=== PATIENT | female | born 1935 | race Caucasian/White ===

== ENCOUNTER 2017-04-15 14:08 | Inpatient (IN) | payer MEDICARE, BC ==
[2017-04-15 15:52] LABS: #Basophils 0.1 thou/uL (0.0-0.2); #Eosinphils 0.2 thou/uL (0.0-0.7); #Lymphocytes 2.8 thou/uL (1.20-3.40); #Monocytes 0.8 thou/uL (0.11-0.59); #Neutrophils 5.4 thou/uL (1.40-6.50); %Basophils 0.8 % (0.0-1.0); %Lymphocytes 30.2 % (21.0-51.0); %Monocytes 8.8 % (0.0-10.0); %Neutrophils 58.2 % (42.0-75.0); Hemoglobin 12.4 g/dL (12.0-16.0); Mean Corpuscular Hemoglobin 30.9 pg (27.0-31.0); Mean Corpuscular Volume 96.8 fl (81.0-99.0); Mean Platelet Volume 7.8 fL (7.4-10.4); Platelet Count 390 thou/uL (130-400); RBC Distribution Width 11.9 % (11.5-14.5); Red Blood Cell (RBC) Count 4.02 mill/uL (4.20-5.40); White Blood Cell (WBC) Count 9.2 thou/uL (4.8-10.8)
[2017-04-15] MEDS ORDERED: Clindamycin/D5W 600 mg/50 ml Premix Bag ONE (15:57)
[2017-04-15 16:11] LABS: Anion Gap 15 mmol/L (10-20); BUN (Urea Nitrogen) 14 mg/dL (9.8-20.1); Calc. Creatinine Clearance 0 mL/min (70-130); Calcium 9.4 mg/dL (7.8-10.44); Carbon Dioxide 22 mmol/L (23-31); Chloride 103 mmol/L (98-107); Estimated GFR-MDRD 84; Glucose 108 mg/dL (83-110); Potassium 4.6 mmol/L (3.5-5.1); Sodium 135 mmol/L (136-145)
--- NOTE | 2017-04-15 16:45 | RAD ---
RIGHT ANKLE 3 VIEWS: Date: 04/15/17 HISTORY: Blistering and infection. COMPARISON: None. FINDINGS: There is soft tissue ulceration. There is diffuse bone demineralization. No fracture. There appears t o be abnormality involving the mid foot/hindfoot. Dedicated right foot radiograph series is recommend ed. IMPRESSION: 1. Diffuse bone demineralization. 2. Possible soft tissue ulceration. 3. Abnormality of the right mid foot and hindfoot. Dedicated right foot radiograph series is recomme nded. POS: [facility]
[2017-04-15] MEDS ORDERED: Ondansetron HCl/PF 4 MG/2 ML Vial ONE (18:09)
[2017-04-15] MEDS ORDERED: Prevnar 13-Val Conj/PF 0.5 ML SYRINGE IM ONE (21:00)
[2017-04-15] MEDS ORDERED: FLU VACC TS2017-18 (>65YR) 0.5 ML SYRINGE IM ONE (21:00)
[2017-04-15] MEDS ORDERED: Ondansetron HCl/PF 4 MG/2 ML Vial IVP PRN (22:36)
[2017-04-16] MEDS ORDERED: Acetaminophen/Codeine 30-300mg Tablet PO PRN (01:45)
[2017-04-16] MEDS ORDERED: Ondansetron ODT 4 MG TAB SL PRN (01:45)
[2017-04-16] MEDS ORDERED: Baclofen 10 MG TAB PO PRN (01:45)
[2017-04-16] MEDS ORDERED: Miconazole 2% Vaginal Cream 45 GM TUBE TOP PRN (01:45)
[2017-04-16] MEDS ORDERED: Clotrimazole 2% 3 Day Vag Cr 22.2 GM TUBE VAG PRN (02:22)
[2017-04-16] MEDS: Sodium Chloride 0.9% 1,000 ML IV SCH ×3 (02:22→17:46)
[2017-04-16 05:00] LABS: #Basophils 0.1 thou/uL (0.0-0.2); #Eosinphils 0.3 thou/uL (0.0-0.7); #Lymphocytes 2.6 thou/uL (1.20-3.40); #Monocytes 0.8 thou/uL (0.11-0.59); #Neutrophils 3.4 thou/uL (1.40-6.50); %Basophils 1.2 % (0.0-1.0); %Eosinophils 4.4 % (0.0-10.0); %Lymphocytes 35.7 % (21.0-51.0); %Monocytes 11.1 % (0.0-10.0); %Neutrophils 47.5 % (42.0-75.0); Hemoglobin 11.4 g/dL (12.0-16.0); Mean Corpuscular HGB CONC 31.5 g/dL (32.0-36.0); Mean Corpuscular Hemoglobin 30.5 pg (27.0-31.0); Platelet Count 384 thou/uL (130-400); Red Blood Cell (RBC) Count 3.72 mill/uL (4.20-5.40); White Blood Cell (WBC) Count 7.2 thou/uL (4.8-10.8)
[2017-04-16] MEDS: Levothyroxine Sodium 88 MCG TAB PO SCH (05:08)
[2017-04-16 05:24] LABS: Anion Gap 10 mmol/L (10-20); BUN (Urea Nitrogen) 13 mg/dL (9.8-20.1); Calc. Creatinine Clearance 55 mL/min (70-130); Calcium 8.9 mg/dL (7.8-10.44); Carbon Dioxide 26 mmol/L (23-31); Chloride 102 mmol/L (98-107); Estimated GFR-MDRD 86; Glucose 86 mg/dL (83-110); Potassium 4.4 mmol/L (3.5-5.1); Sodium 134 mmol/L (136-145)
[2017-04-16] MEDS: HYDROcodone/Acetaminophen 5/325 mg Tablet PO PRN ×2 (05:52→11:31)
[2017-04-16] MEDS ORDERED: Clindamycin/D5W 600 MG in Premix Bag 1 BAG IVPB SCH (06:00)
--- NOTE | 2017-04-16 06:19 | PDOC.FM ---
- Subjective Subjective: Pt reports doing fine. Says she didn't sleep at all overnight. Denies any fever or chills. says pain is being well controlled. Says she is very weak. Says she has poor mobility in one shoulder and has a hard time getting up and is hard for her to get up and walk around on her foot. Denies any acute events overnight. No other concerns at this time. - Objective MAR Reviewed: Yes Vital Signs & Weight: Vital Signs (12 hours) Temp Pulse Resp BP Pulse Ox 04/16/17 00:00 98 F 64 20 151/75 H 95 04/15/17 20:05 99 04/15/17 20:00 98.5 F 91 20 04/15/17 19:02 98.5 F 91 20 190/84 H 99 I&O: 04/14/17 04/15/17 04/16/17 06:59 06:59 06:59 Intake Total 50 Balance 50 Result Diagrams: 04/16/17 04:09 04/16/17 04:09 Radiology Reviewed by me: Yes Radiology: Foot X-ray- Pes planus deformity noted Ankle X-ray- No sign of osteomyelitis. Bone mineralization changes noted <Wilner Schulz - Last Filed: 04/16/17 08:38> - Objective Result Diagrams: 04/16/17 04:09 04/16/17 04:09 <Adrian Fernández - Last Filed: 04/16/17 11:47> Phys Exam - Physical Examination HEENT: PERRLA, moist MMs, oral pharynx no lesions Neck: no nodes, supple, full ROM Respiratory: no wheezing, no rales, no rhonchi, clear to auscultation bilateral Cardiovascular: RRR, no significant murmur, no rub Gastrointestinal: soft, non-tender, no distention, positive bowel sounds Musculoskeletal: no edema, pulses present Wound is dressed at this time. No redness noted Foot is pointed outward, seems to be chronically malpositioned Neurological: non-focal, normal sensation, moves all 4 limbs Lymphatic: no nodes Psychiatric: normal affect, A&O x 3 Skin: no rash, normal turgor, cap refill <2 seconds <Wilner Schulz - Last Filed: 04/16/17 08:38> Dx/Plan (1) chronic venostasis Status: Acute (2) HTN (hypertension) Code(s): I10 - ESSENTIAL (PRIMARY) HYPERTENSION Status: Acute (3) Rheumatoid arthritis Code(s): M06.9 - RHEUMATOID ARTHRITIS, UNSPECIFIED Status: Acute (4) Hypothyroid Code(s): E03.9 - HYPOTHYROIDISM, UNSPECIFIED Status: Acute (5) Cellulitis Code(s): L03.90 - CELLULITIS, UNSPECIFIED Status: Acute (6) Depression Code(s): F32.9 - MAJOR DEPRESSIVE DISORDER, SINGLE EPISODE, UNSPECIFIED Status : Acute - Plan Plan: RLE cellulitis 2/2 chronic venous ulcer Infection -Clindamycin IV. No fevers overnight -Tylenol #4 prn as needed. -X-ray of ankle and foot does not show any acute concern for osteomyelitis at this time. -Wound Care consulted- has been to wound care clinic in the past -consulted PT/OT for mobility assessment HTN -continue home meds. will continue to monitor BP RA -Continue to monitor for flares. Depression -continue home meds Hypothyroidism -continue home meds <Wilner Schulz - Last Filed: 04/16/17 08:38> Attending Addendum - Attending Addendum I personally evaluated the patient and discussed the management with Dr. Schulz. I agree with the History, Examination, Assessment and Plan documented above with any addition or exceptions noted below. Patient doing well. Seems to have mild cellulitis from venous stasis ulcer. No current evidence to suggest osteomyelitis. Continue clindamycin and consult wound care. Patient also has deconditioning and would likely benefit from Rehab versus SNF. Will consult therapy services and CM. <Adrian Fernández - Last Filed: 04/16/17 11:47>
[2017-04-16] MEDS ORDERED: Polyethylene Glycol 3350 17 GM Packet PO ONE (06:22)
--- NOTE | 2017-04-16 06:44 | PDOC.EVN ---
Event Note - Event Note Event Note: Attending H&P. Late entry. I personally evaluated the patient and discussed the management with Dr. Palma on the evening of 04/15. The Written H&P has been reviewed and is repeated by me. I agree with the History, Examination, Assessment and Plan documented above with any addition or exceptions noted below.
--- NOTE | 2017-04-16 07:59 | RAD ---
THREE VIEWS RIGHT FOOT: HISTORY: Right foot deformity on prior exam. FINDINGS: AP, lateral, and oblique views right foot are obtained. Images demonstrate no evidence of acute fractures. There is pes planus deformity of the right foot. No evidence of acute fractures seen. IMPRESSION: Pes planus deformity right foot. POS: [facility]
--- NOTE | 2017-04-16 08:47 | HP-2 ---
CODE STATUS: FULL. PRIMARY CARE PHYSICIAN: Latha monge. ATTENDING: Dr. Pee Abraham RESIDENT: Dr. Dominique Palma CHIEF COMPLAINT: Right foot infection. HISTORY OF PRESENT ILLNESS: This is an 81-year-old female with past medical history of hypertension and chronic wound on right ankle for the past year. The patient complained of a right foot infection . She reports blistering and sores of right foot for approximately 2 weeks. [facility] and was told last week her foot was infected, but was not given treatment. T he patient states that it has since gotten worse. She denies any fever or chills during this time. The reported that she has had chronic right foot problems for approximately 10 years now. Th e foot has now become red and painful. She normally walks well with a walker, but has had difficulty ambulating since she is unable to bear weight on that right foot. The patient has not received any antibiotics in the last few weeks for treatment of this infection. She was given Zofran 8 mg IVP, mo rphine 4 mg IVP and clindamycin 600 mg IVP in the ER. PAST MEDICAL HISTORY: 1. Hypertension. 2. Rheumatoid arthritis. 3. Chronic venous hypertension with ulcers and inflammation. 4. Hyperlipidemia. 5. Hypothyroidism. 6. Possible osteoporosis. PAST SURGICAL HISTORY: 1. History of venous ablation on left by Dr. Salazar. 2. Bilateral knee replacements. 3. Bilateral wrist surgery. ALLERGIES: No known drug allergies. MEDICATIONS: 1. Tylenol No. 4 one tablet p.o. q.4h. p.r.n. 2. Amlodipine 5 mg p.o. daily. 3. Baclofen 10 mg p.o. b.i.d. p.r.n. 4. Calcium carbonate/vitamin D3 1500 mg/400 unit capsule 1 tablet p.o. b.i.d. 5. Citalopram 40 mg p.o. daily. 6. Ferrous sulfate 325 mg p.o. b.i.d. 7. Folic acid 1 mg p.o. daily. 8. Furosemide 20 mg p.o. daily. 9. Lactobacillus acidophilus 1 tab p.o. daily. 10. Synthroid 88 mcg p.o. daily. 11. Lidoderm 5% patch 1 patch topical daily. 12. Losartan 50 mg p.o. daily. 13. Magnesium 200 mg p.o. b.i.d. 14. Miconazole 2% vaginal cream 1 application topical daily p.r.n. 15. Tennyson 3 acid ethyl esters 2 mg p.o. b.i.d. 16. Zofran 4 mg sublingual t.i.d. p.r.n. 17. Protonix 40 mg p.o. b.i.d. 18. MiraLax 17 grams p.o. b.i.d. 19. Potassium chloride 20 mEq p.o. daily. 20. Pravastatin 20 mg p.o. daily. 21. Raloxifene 60 mg p.o. daily. 22. Senna 8.6 mg p.o. daily. FAMILY HISTORY: Noncontributory. SOCIAL HISTORY: The patient denies tobacco, alcohol, or drug use. REVIEW OF SYSTEMS: A 12 point review of systems was performed, all were negative except as listed in HPI and as indicated below. The patient does endorse a reducible ventral hernia which has been pres ent for several years. She denies any complications secondary to this hernia. She has been constipa natalia for the last 2 days, but normally has bowel movement every day. She endorses a rash of the right lower extremity, particularly on the ankle and foot. Additionally, she has rheumatoid arthritis whi ch causes musculoskeletal pain and stiffness. She has been weak since onset of this right lower extr emity infection. She has had difficulty ambulating. PHYSICAL EXAMINATION: VITAL SIGNS: Blood pressure 166/89, pulse 71, respiratory rate 19, T-max 98.3, pulse ox 99% on room air, current weight 53 kilograms. GENERAL: The patient is alert and oriented x3, no acute distress, well-developed, well-nourished, th in and appropriately interactive and she is a poor historian. EYES: Extraocular muscles intact. Conjunctivae within normal limits. ENT: Nasal mucosa within normal limits. NECK: Supple. CARDIOVASCULAR: Irregular rhythm. No murmurs, no gallops. Radial and pedal pulses 1+. RESPIRATORY: Normal effort, no retractions, clear to auscultation bilaterally. SKIN: Warm and dry. No cyanosis. Lower extremities do feel cool to touch and did have a shiny appe arance. Right lower extremity wounds are present on the medial and lateral aspect of distal tibia an d fibula. They are currently dressed by Wound Care. ABDOMEN: Soft, nontender to palpation. Bowel sounds positive in all 4 quadrants. There is a large ventral hernia that is reducible. EXTREMITIES: No clubbing, cyanosis or edema. MUSCULOSKELETAL: Structure within normal limits. NEUROLOGIC: No focal deficits. The patient is able to ambulate with walker. PSYCHIATRIC: Appropriate. LABORATORY DATA: 1. CBC reveals a white blood cell count 9.2, hemoglobin 12.4, hematocrit 38.9, platelets 390. 2. BMP reveals sodium 135, potassium 4.6, chloride 103, bicarbonate 22, BUN 14, creatinine 0.67, glu cose 108, calcium 9.4. 3. Right ankle x-ray. She has diffuse bone demineralization with possible soft tissue ulceration an d abnormality of right midfoot and hindfoot. A dedicated right foot radiograph series was recommende d. ASSESSMENT AND PLAN: This is an 81-year-old female with past medical history of chronic venous hyper tension who presents with pain and redness of the right foot. 1. Cellulitis of the right lower extremity secondary to chronic venous ulcer infection. The patient was admitted to the medical floor for observation. X-ray of the right ankle did not show any indica tion of osteomyelitis. Per recommendations a dedicated right foot radiograph was performed and is pe nding at this time. An ESR is also pending to further evaluate for osteomyelitis. An MRI of the rig ht lower extremity may be warranted if clinical suspicion for osteomyelitis arises. We will order ar terial Dopplers of the lower extremities to evaluate arterial flow and assess potential for healing. PT and OT were ordered to help evaluate the patient. Additionally, rehab screen was put in as the p atient has been deconditioned secondary to not being able to ambulate. We will continue clindamycin 600 mg q.6h. for treatment of presumed cellulitis. 2. Hypertension. Resume home meds. 3. Rheumatoid arthritis. The patient has obvious deformities indicative of rheumatoid arthritis; ho wever, she does not appear to be on any medications to include immunosuppressive therapy at this time . We will assist with pain control via Tylenol for now. 4. Irregular heart rhythm. We will obtain an EKG to further evaluate with an intent of ruling out a trial fibrillation, premature atrial contractions and premature ventricular contractions. If EKG cantor s show atrial fibrillation this would be new onset for the patient and it does appear to be rate cont rolled. 5. Deep venous thrombosis prophylaxis. Lovenox. DISPOSITION/LENGTH OF HOSPITAL STAY: 2 days. Symptomatic medications will be provided. History and physical exam as well as management discussed with Dr. Pee Abraham.
[2017-04-16] MEDS ORDERED: Fish Oil 1,000 MG CAP PO SCH (09:00)
[2017-04-16] MEDS: Calcium Carbonate + Vit D 1 TAB PO SCH ×2 (09:45→21:32)
[2017-04-16] MEDS: Losartan 25 MG TAB PO SCH (09:45)
[2017-04-16] MEDS: Ferrous Sulfate 325 MG TAB PO SCH ×2 (09:46→17:45)
[2017-04-16] MEDS: Citalopram 20 MG TAB PO SCH (09:46)
[2017-04-16] MEDS: Potassium Chloride 20 MEQ TAB PO SCH (09:46)
[2017-04-16] MEDS: Furosemide 20 MG TAB PO SCH (09:47)
[2017-04-16] MEDS: Folic Acid 1 MG TAB PO SCH (09:47)
[2017-04-16] MEDS: Amlodipine 5 MG TAB PO SCH (09:47)
[2017-04-16] MEDS: Magnesium Oxide 400 MG TAB PO SCH ×2 (09:48→21:32)
[2017-04-16] MEDS: Senokot 8.6 MG TAB PO SCH (09:52)
[2017-04-16] MEDS: Floranex Packet PO SCH (09:53)
[2017-04-16] MEDS: Enoxaparin Sodium 30 MG/0.3 ML SYRINGE SC SCH (09:53)
--- NOTE | 2017-04-16 12:55 | ULT ---
BILATERAL LOWER EXTREMITY ARTERIAL DOPPLER ULTRASOUND: CLINICAL HISTORY: Nonhealing soft tissue wound of the right medial ankle. TECHNIQUE: Doppler color-flow with spectral analysis performed of the bilateral lower extremity arterial system. FINDINGS: RIGHT LOWER EXTREMITY: Triphasic wave-form is seen at the common femoral artery. Within the profund a femoris artery, there is a biphasic waveform. Triphasic wave-forms are listed at the right superfi cial femoral and right popliteal arteries. Below the level of the right knee, there is predominant m onophasic wave-form. LEFT LOWER EXTREMITY: Biphasic wave-form is documented at the left common femoral and at the left torres perficial femoral artery. Monophasic wave-form is seen at the left profunda femoris artery. At the level of the left popliteal artery and the arterial system below the level of the left knee, predomin ant biphasic wave-form is present. Maximum arterial velocity of the right lower extremity is at the level of the common femoral artery, measuring 182 cm per second, and within the left lower extremity, maximum velocity is at the level of the left common femoral artery, measuring 116 cm per second. IMPRESSION: Scattered areas of diminished wave-form bilaterally, most notable below the level of the right knee. This indicates a moderate to severe degree of peripheral vascular disease. Correlate clinically. POS: [facility]
[2017-04-16] MEDS: Clindamycin/D5W 600 MG in Premix Bag 1 BAG IVPB SCH ×2 (13:17→21:32)
[2017-04-16] MEDS: Pravastatin Sodium 20 MG TAB PO SCH (21:32)
--- NOTE | 2017-04-16 21:56 | CON ---
DATE OF CONSULTATION: 04/13/2017 HISTORY OF PRESENT ILLNESS: She is a pleasant 81-year-old female admitted with a possible infection in her right ankle wound. The patient states that she has had right ankle wound for 15 years that perales s failed to heal despite multiple evaluations by various physicians and longstanding wound care. She had some wounds on her left leg at the ankle level were slow to heal, but eventually healed followin g a venous ablation and treatment by Dr. Salazar. The patient states that for several months she has perales d difficulty ambulating due to discomfort with weightbearing. The pain is worse with dependency and improves when she elevates in bed. She lives with her and he assists at her home. PAST MEDICAL HISTORY: Includes rheumatoid arthritis which is not being treated. The patient also perales s osteoporosis, dyslipidemia, and hypothyroidism. PAST SURGICAL HISTORY: Include bilateral knee replacements, wrist surgery bilaterally, and the left leg venous ablation. MEDICATIONS: Amlodipine, baclofen, Ditropan, folic acid, levothyroxine, Losartan, and pravastatin. SOCIAL HISTORY: The patient is . She grew up and has lived in [place] her entire life. She has 3 children who live in the nearby community. PHYSICAL EXAMINATION: GENERAL: She is an elderly lady appearing her stated age. VITAL SIGNS: Heart rate of 70, blood pressure of 150. NECK: I do not appreciate any carotid bruits. CARDIOVASCULAR: She has an occasional ectopic beats, but I do not appreciate any murmurs. ABDOMEN: Scaphoid and nontender. EXTREMITIES: She has a midline incision that is healed, but she has a large ventral hernia and palpa ble stool filled colon. She has palpable femoral pulses bilaterally, popliteal pulses bilaterally, a s well as a palpable right dorsalis pedis and right posterior tibial pulse. I cannot appreciate any pedal pulses in her left foot. Her Doppler signals in her right foot, both are triphasic and normal, and her left posterior tibial was triphasic and her left dorsalis pedis is monophasic. PLAN: At this time, the patient's large vessel flow to her foot on the right is quite good with palp able pulses and excellent Doppler signals despite the vascular ultrasound interpretation that was don e. She has had these ulcerations for 15 years and appears to have adequate blood flow. Whether she could have some underlying vasculitis or whether these are venous insufficiency ulcers, although they do not appear to be venous insufficiency is unclear. At this time, the wounds are clean and do not appear infected and I would think that antibiotic therapy is probably okay to stop at this time. I s ee no indication for angiography since the patient has excellent pulses and Doppler signals.
[2017-04-17] MEDS: Polyethylene Glycol 3350 17 GM Packet PO PRN ×2 (02:55→21:26)
[2017-04-17] MEDS: HYDROcodone/Acetaminophen 5/325 mg Tablet PO PRN ×3 (02:55→21:16)
--- NOTE | 2017-04-17 06:30 | PDOC.FM ---
- Subjective Subjective: Pt reports doing better. Says she got up and walked a little yesterday. Says still having pain some in her foot. Says pain is being controlled though with current regimen. Denies any fever chills. Denies any acute events overnight. Pt came in room. Discussed with them about her going to rehab. pt was a little weary. Said she has home health but says she has not been able to walk much at home. said he wants her to stay a few more days in the hospital. He is very concerned about her ulcer. Says she has had it for over 10 years. I discussed with him Dr. Cherry's recs and how pt would benefit from rehab. Pt and are still in question to this option. Will talk with them more. Let them know its a chronic ulcer and could take awhile to heal. - Objective Vital Signs & Weight: Vital Signs (12 hours) Temp Pulse Resp BP Pulse Ox 04/17/17 04:00 62 157/81 H 04/16/17 20:00 98.1 F 62 22 H 162/81 H 92 L 04/16/17 18:38 97.8 F 63 16 171/82 H 98 I&O: 04/15/17 04/16/17 04/17/17 06:59 06:59 06:59 Intake Total 3550 Balance 3550 Result Diagrams: 04/17/17 07:26 04/16/17 04:09 Radiology Reviewed by me: Yes (Doppler show RL mod to severe stenosis) <Wilner Schulz - Last Filed: 04/17/17 09:00> - Objective Vital Signs & Weight: Vital Signs (12 hours) Temp Pulse Resp BP Pulse Ox 04/17/17 20:00 98.1 F 58 L 16 117/69 93 L 04/17/17 17:04 98.1 F 60 20 154/80 H 97 04/17/17 11:17 98.4 F 60 20 151/79 H 93 L I&O: 04/16/17 04/17/17 04/18/17 06:59 06:59 06:59 Intake Total 3550 1080 Balance 3550 1080 Result Diagrams: 04/17/17 07:26 04/16/17 04:09 <Erendira Figueroa - Last Filed: 04/17/17 22:41> Phys Exam - Physical Examination HEENT: PERRLA, moist MMs Neck: no nodes, supple, full ROM Respiratory: no wheezing, no rales, no rhonchi, clear to auscultation bilateral Cardiovascular: RRR, no significant murmur, no rub Gastrointestinal: soft, non-tender, no distention, positive bowel sounds Musculoskeletal: pulses present Neurological: non-focal, moves all 4 limbs Lymphatic: no nodes Psychiatric: normal affect Skin: normal turgor Deviation from normal: Top of foot still red. No difference in heat when comparing. -: Wound ulcer dressed at this time. No acute draingage <Wilner Schulz - Last Filed: 04/17/17 09:00> Dx/Plan (1) chronic venostasis Status: Acute (2) HTN (hypertension) Code(s): I10 - ESSENTIAL (PRIMARY) HYPERTENSION Status: Acute (3) Rheumatoid arthritis Code(s): M06.9 - RHEUMATOID ARTHRITIS, UNSPECIFIED Status: Acute (4) PVD (peripheral vascular disease) Code(s): I73.9 - PERIPHERAL VASCULAR DISEASE, UNSPECIFIED Status: Acute (5) Hypothyroid Code(s): E03.9 - HYPOTHYROIDISM, UNSPECIFIED Status: Acute (6) Cellulitis Code(s): L03.90 - CELLULITIS, UNSPECIFIED Status: Acute (7) Depression Code(s): F32.9 - MAJOR DEPRESSIVE DISORDER, SINGLE EPISODE, UNSPECIFIED Status : Acute - Plan Plan: RLE cellulitis 2/2 chronic venous ulcer Infection -Clindamycin IV. Have switched to oral Keflex at this time No fevers overnight -Uses Tylenol #4 at home. Do not supply that here. Using norco for pain if needed. -X-ray of ankle and foot does not show any acute concern for osteomyelitis at this time. -Wound Care consulted- has been to wound care clinic in the past -consulted PT/OT for mobility assessment- recommend rehab or SNU -Rehab Screening- Placement pending. Pt may be resistant. Discussed with her and in length that this is probably the best option. -Blood cx-NGTD PVD -Doppler of right leg shows moderate to severe stenosis of vessels. -Has R. ankle ulcer likely related to venostasis. Cellulitis on top of R foot -CV surgery consulted- Dilip. consulted for concern of blood flow to allow healing in foot Reports blood flow and pulses being adequate. Also does not think infected. HTN -continue home meds. will continue to monitor BP. BP a little elevated may need to adjust medication. RA -Continue to monitor for flares. Depression -continue home meds Hypothyroidism -continue home meds <Wilner Schulz - Last Filed: 04/17/17 09:00> Attending Addendum - Attending Addendum I personally evaluated the patient and discussed the management with Dr. Schulz I agree with the History, Examination, Assessment and Plan documented above with any addition or exceptions noted below - Patient without complaints. Tolerating diet. Working with PT. Afebrile VSS. A/P: 1) leg ulcers most likely secondary to venous insufficiency- appreciate input from Dr. Cherry. Continue wound care. Trabsitioned to po abx. 2) Deconditioning- will evaluate for possible SNF placement. <Erendira Figueroa - Last Filed: 04/17/17 22:41>
[2017-04-17] MEDS: Levothyroxine Sodium 88 MCG TAB PO SCH (06:42)
[2017-04-17] MEDS: Clindamycin/D5W 600 MG in Premix Bag 1 BAG IVPB SCH (07:23)
[2017-04-17 07:54] LABS: #Basophils 0.1 thou/uL (0.0-0.2); #Eosinphils 0.1 thou/uL (0.0-0.7); #Lymphocytes 2.5 thou/uL (1.20-3.40); #Monocytes 0.4 thou/uL (0.11-0.59); #Neutrophils 2.5 thou/uL (1.40-6.50); %Basophils 1.3 % (0.0-1.0); %Eosinophils 2.3 % (0.0-10.0); %Monocytes 7.7 % (0.0-10.0); %Neutrophils 44.7 % (42.0-75.0); Hemoglobin 11.8 g/dL (12.0-16.0); Mean Corpuscular HGB CONC 31.6 g/dL (32.0-36.0); Mean Corpuscular Hemoglobin 30.5 pg (27.0-31.0); Mean Corpuscular Volume 96.6 fl (81.0-99.0); Platelet Count 354 thou/uL (130-400); RBC Distribution Width 11.8 % (11.5-14.5); Red Blood Cell (RBC) Count 3.85 mill/uL (4.20-5.40); White Blood Cell (WBC) Count 5.6 thou/uL (4.8-10.8)
[2017-04-17] MEDS: Citalopram 20 MG TAB PO SCH (08:29)
[2017-04-17] MEDS: Potassium Chloride 20 MEQ TAB PO SCH (08:30)
[2017-04-17] MEDS: Fish Oil 1,000 MG CAP PO SCH ×2 (08:30→21:18)
[2017-04-17] MEDS: Ferrous Sulfate 325 MG TAB PO SCH ×2 (08:30→16:47)
[2017-04-17] MEDS: Amlodipine 5 MG TAB PO SCH (08:30)
[2017-04-17] MEDS: Calcium Carbonate + Vit D 1 TAB PO SCH ×2 (08:30→21:19)
[2017-04-17] MEDS: Folic Acid 1 MG TAB PO SCH (08:30)
[2017-04-17] MEDS: Magnesium Oxide 400 MG TAB PO SCH ×2 (08:30→21:18)
[2017-04-17] MEDS: Losartan 25 MG TAB PO SCH (08:31)
[2017-04-17] MEDS: Cephalexin 250 MG CAP PO SCH ×2 (08:31→21:17)
[2017-04-17] MEDS: Sodium Chloride 0.9% 1,000 ML IV SCH (08:31)
[2017-04-17] MEDS: Furosemide 20 MG TAB PO SCH (08:31)
[2017-04-17] MEDS: Enoxaparin Sodium 30 MG/0.3 ML SYRINGE SC SCH (08:32)
[2017-04-17] MEDS: Floranex Packet PO SCH (08:49)
[2017-04-17] MEDS: Senokot 8.6 MG TAB PO SCH (08:49)
[2017-04-17] MEDS ORDERED: Saccharomyces boulardii 250 MG CAP PO SCH (09:00)
--- NOTE | 2017-04-17 12:03 | RAD ---
RIGHT SHOULDER 3 VIEWS: Date: 04/17/17 HISTORY: Right shoulder with remote fracture. Poor range of motion. COMPARISON: None. FINDINGS: There appears to be a remote fracture with possible postsurgical change involving the greater tuberos ity. There is subluxation of the humeral head with respect to the glenoid in a superior direction sug gesting in adequate rotator cuff function. Better interrogation with MRI is recommended. IMPRESSION: MRI is recommended. POS: [facility]
[2017-04-17] MEDS: Pravastatin Sodium 20 MG TAB PO SCH (21:18)
[2017-04-18] MEDS: Levothyroxine Sodium 88 MCG TAB PO SCH (06:06)
--- NOTE | 2017-04-18 06:25 | PDOC.FM ---
- Subjective Subjective: Pt reports doing fine this morning. Says she had a better bowel movement yesterday. Denies any fever or chills. Denies any acute events overnight. No other questions at this time. Pt doing well. Is ready for discharge. - Objective MAR Reviewed: Yes Vital Signs & Weight: Vital Signs (12 hours) Temp Pulse Resp BP Pulse Ox 04/17/17 20:00 98.1 F 58 L 16 117/69 93 L I&O: 04/16/17 04/17/17 04/18/17 06:59 06:59 06:59 Intake Total 3550 1080 Balance 3550 1080 Result Diagrams: 04/17/17 07:26 04/16/17 04:09 Radiology Reviewed by me: Yes (Shoulder Xray recommends follow up MRI) <Wilner Schulz - Last Filed: 04/18/17 07:31> - Objective Vital Signs & Weight: Vital Signs (12 hours) Temp Pulse Resp BP BP Pulse Ox 04/18/17 08:00 98.2 F 68 16 154/70 H 92 L 04/18/17 07:49 65 154/70 H I&O: 04/17/17 04/18/17 04/19/17 06:59 06:59 06:59 Intake Total 3550 1560 Balance 3550 1560 Result Diagrams: 04/17/17 07:26 04/16/17 04:09 <Mundo Dudley - Last Filed: 04/18/17 10:46> Phys Exam - Physical Examination HEENT: PERRLA, moist MMs Neck: no nodes, supple, full ROM Respiratory: no wheezing, no rales, no rhonchi, clear to auscultation bilateral Cardiovascular: RRR, no significant murmur, no rub Gastrointestinal: soft, non-tender, no distention, positive bowel sounds Musculoskeletal: no edema, pulses present Neurological: non-focal, moves all 4 limbs Lymphatic: no nodes Psychiatric: normal affect, A&O x 3 Deviation from normal: wound dressed at this time. No drainage noted -: Foot still red. Still about the same. Likely vascular related. <Wilner Schulz - Last Filed: 04/18/17 07:31> Dx/Plan (1) chronic venostasis Status: Acute (2) HTN (hypertension) Code(s): I10 - ESSENTIAL (PRIMARY) HYPERTENSION Status: Acute (3) Rheumatoid arthritis Code(s): M06.9 - RHEUMATOID ARTHRITIS, UNSPECIFIED Status: Acute (4) PVD (peripheral vascular disease) Code(s): I73.9 - PERIPHERAL VASCULAR DISEASE, UNSPECIFIED Status: Acute (5) Hypothyroid Code(s): E03.9 - HYPOTHYROIDISM, UNSPECIFIED Status: Acute (6) Cellulitis Code(s): L03.90 - CELLULITIS, UNSPECIFIED Status: Acute (7) Depression Code(s): F32.9 - MAJOR DEPRESSIVE DISORDER, SINGLE EPISODE, UNSPECIFIED Status : Acute - Plan Plan: RLE cellulitis 2/2 chronic venous ulcer Infection -Clindamycin IV for 1 day. Have switched to oral Keflex at this time No fevers overnight -Uses Tylenol #4 at home. Do not supply that here. Using norco for pain if needed. -X-ray of ankle and foot does not show any acute concern for osteomyelitis at this time. -Wound Care consulted- has been to wound care clinic in the past. will have her follow up with home health wound care -consulted PT/OT for mobility assessment- recommend rehab or SNU. Pt wants to go to home with home health at this time -Rehab Screening- Placement pending. Pt may be resistant. Discussed with her and in length that this is probably the best option. After long discussions they have decided to go home with home health -Blood cx-NGTD PVD -Doppler of right leg shows moderate to severe stenosis of vessels. -Has R. ankle ulcer likely related to venostasis. Cellulitis on top of R foot -CV surgery consulted- Dilip. consulted for concern of blood flow to allow healing in foot Reports blood flow and pulses being adequate. Also does not think infected. HTN -continue home meds. will continue to monitor BP. BP a little elevated may need to adjust medication. RA -Continue to monitor for flares. Depression -continue home meds Hypothyroidism -continue home meds Rotator Cuff Tear -Shoulder X-ray shows some chronic changes. Recommends MRI f/u -Will have her f/u with her orthopedic doc outpatient. <Wilner Schulz - Last Filed: 04/18/17 07:31> Attending Addendum - Attending Addendum I personally evaluated the patient and discussed the management with Dr. [Klecan ] I agree with the History, Examination, Assessment and Plan documented above. Pt stable. Her wound is chronic. No sign of acute infection. Wants to go home with home health. Will d/c home today with keflex for 5 more days. <Mundo Dudley - Last Filed: 04/18/17 10:46>
[2017-04-18] MEDS: HYDROcodone/Acetaminophen 5/325 mg Tablet PO PRN (07:05)
[2017-04-18] MEDS: Losartan 25 MG TAB PO SCH (07:47)
[2017-04-18] MEDS: Potassium Chloride 20 MEQ TAB PO SCH (07:47)
[2017-04-18] MEDS: Calcium Carbonate + Vit D 1 TAB PO SCH (07:47)
[2017-04-18] MEDS: Fish Oil 1,000 MG CAP PO SCH (07:48)
[2017-04-18] MEDS: Folic Acid 1 MG TAB PO SCH (07:48)
[2017-04-18] MEDS: Ferrous Sulfate 325 MG TAB PO SCH (07:48)
[2017-04-18] MEDS: Furosemide 20 MG TAB PO SCH (07:48)
[2017-04-18] MEDS: Citalopram 20 MG TAB PO SCH (07:48)
[2017-04-18] MEDS: Magnesium Oxide 400 MG TAB PO SCH (07:49)
[2017-04-18] MEDS: Amlodipine 5 MG TAB PO SCH (07:49)
[2017-04-18] MEDS: Enoxaparin Sodium 30 MG/0.3 ML SYRINGE SC SCH (07:50)
[2017-04-18] MEDS: Cephalexin 250 MG CAP PO SCH (07:50)
[2017-04-18] MEDS: Senokot 8.6 MG TAB PO SCH (07:50)
[2017-04-18] MEDS: Floranex Packet PO SCH (07:50)
[2017-04-18] MEDS ORDERED: Docusate 100 MG CAP PO SCH (09:00)
[2017-04-18 11:34] VITALS: BP 154/73; TEMP 98.4
--- NOTE | 2017-04-21 08:50 | DIS-2 ---
DATE OF ADMISSION: 04/16/2017 DATE OF DISCHARGE: 04/18/2017 ADMITTING ATTENDING: Dr. Pee Abraham DISCHARGE ATTENDING: Dr. Mundo Dudley CONSULTATIONS: CV Surgery, Dr. Cherry. IMAGING: Got an ankle x-ray on 04/15/2017 which showed; 1) diffuse bone demineralization; 2) possibl e soft tissue ulceration; 3) abnormality of the right midfoot and hindfoot. Dedicated right foot rad iograph series recommended. 04/15/2017 - Foot x-ray showed pes planus deformity of the right foot and got a lower extremity ultra sound on 04/16/2017 which showed scattered areas of diminished waveform bilaterally, most notable bel ow the level of the right knee. This indicates moderate to severe degree of peripheral vascular dise ase. Correlate clinically. She got a shoulder x-ray on 04/17/2017 which showed MRI is recommended. DISCHARGE DIAGNOSES: 1. Right lower extremity cellulitis secondary to chronic venous ulcer infection. 2. Peripheral vascular disease. 3. Hypertension. 4. Rheumatoid arthritis. 5. Depression. 6. Hypothyroidism. 7. Rotator cuff tear. DISCHARGE MEDICATIONS: Keflex 500 mg p.o. q.12h., Tylenol with codeine #4 one tab p.o. q.4 h, amlodi pine 5 mg p.o. daily, baclofen 10 mg p.o. b.i.d., vitamin D3 one tab p.o. b.i.d., citalopram 40 mg p. o. daily, ferrous sulfate 325 mg p.o. b.i.d., folic acid 1 mg p.o. daily, furosemide 20 mg p.o. daily , lactobacillus acidophilus 1 pack p.o. daily, levothyroxine sodium 88 mg p.o. daily, lidocaine 5% pa tch 1 patch topical daily, losartan 50 mg p.o. daily, magnesium 200 mg b.i.d., miconazole 2% vaginal cream 1 application topical daily, omega 3 acid 2 mg p.o. b.i.d., Decadron 4 mg sublingual t.i.d., pa ntoprazole 40 mg p.o. b.i.d. DISCONTINUED MEDICATIONS: Clindamycin, which she got one day IV. HOSPITAL COURSE: This is an 81-year-old female with history of rheumatoid arthritis, came in with hy pertension, chronic wound on the right ankle. The patient complained of wound infection. She said s he has had that ulcer for over 10 years, came in because her foot was becoming red and painful, sabrina g difficulty walking. When she came in, there was noticed redness on the top of the foot. Foot x-ra y did not show anything concerning of probable osteomyelitis. Her white blood cell count was normal. CBC was relatively normal, chemistry nothing abnormal there. Vital signs were fairly stable. Earl mccallum did have a fever. At this time we decided that likely it was maybe a diagnosis of cellulitis had a little mild cellulitis. Discontinue the clindamycin, try her on oral Keflex. At this time, we were concerned as she had reported a history of peripheral vascular disease. We got Dopplers that showed the severe stenosis. At this time we consulted Dr. Cherry to come and assess her as maybe that is wh y she was not healing from the ulcer. He determined good pulses, did not think there was anything ne eded to be done. He did not think there was any infection, so at this time she was ready for dischar . She was unable to get a ride on the , so we had to keep her until the . Continued antib iotics. No changes made. Vital signs stayed relatively stable. At this time we discharged her home with home health, increased wound care and physical therapy for her weakness. She did not want to g o to a retirement or penitentiary unit for a short term. DISPOSITION: Stable. DISCHARGE INSTRUCTIONS: 1. Location: Home. 2. Activities: Activity as tolerated, and will need PT and OT with home health. 3. Diet: Heart healthy diet. 4. Followup: She will need to follow up with her primary care doctor. Followup with Wound Care as needed in 14 days for hospital followup.
== END 2017-04-18 12:14 | disposition home health service (06) | DRG 593 ==
LOC: ERS 14:08 → T4-B 17:22 → OBSVTOIN 04-16 11:28
PROVIDERS: ADMIT Family Medicine; ATTEND Family Medicine
DX: L97.519 Non-pressure chronic ulcer of other part of right foot with unspecified severity (principal); L03.115 Cellulitis of right lower limb; I73.9 Peripheral vascular disease, unspecified; L08.9 Local infection of the skin and subcutaneous tissue, unspecified; M06.9 Rheumatoid arthritis, unspecified; I10 Essential (primary) hypertension; E78.5 Hyperlipidemia, unspecified; E03.9 Hypothyroidism, unspecified; Z96.653 Presence of artificial knee joint, bilateral; K59.00 Constipation, unspecified; F32.9 Major depressive disorder, single episode, unspecified; M81.0 Age-related osteoporosis without current pathological fracture; I87.8 Other specified disorders of veins
CPT/HCPCS: 36415; 80048; 85025; 85652; 87040; 90471; 90670; 90682; 93005; 93010; 93923; 96365; 96375; G0008; G0009; G8978-GP-CK; G8979-GP-CI; G8987-GO-CM; G8988-GO-CK; J1650; J2270; J2405; J3490; Q2036